=== PATIENT | female | born 1960 | race Caucasian/White ===

== ENCOUNTER → 2017-12-15 | Outpatient (CLI) | payer BC ==
--- NOTE | 2017-12-16 07:43 | MM ---
Reason for exam: screening (asymptomatic). Baseline mammogram. History: Patient is postmenopausal and had first child at age 32. Took hormonal contraceptives for 3 years. Physical Findings: Nurse did not find any significant physical abnormalities on exam. MG Screening Mammo w CAD Bilateral CC and MLO view(s) were taken. XCCL view(s) were taken of the right breast. The breast tissue is heterogeneously dense. This may lower the sensitivity of mammography. There is no discrete abnormality. Some scattered regional calcifications right upper outer quadrant. These results were verbally communicated with the patient and result sheet given to the patient on 12/15/17. ASSESSMENT: Negative, BI-RAD 1 RECOMMENDATION: Routine screening mammogram of both breasts in 1 year.
== END ==
LOC: RADMAMWWP 14:49
PROVIDERS: ATTEND Family Medicine
DX: Z12.31 Encounter for screening mammogram for malignant neoplasm of breast (principal)
CPT/HCPCS: 77067

== ENCOUNTER 2020-10-20 07:37 | Inpatient (IN) | payer BC, OTHER ==
[2020-10-20 07:58] LABS: Glucose,Whole Blood 132 mg/dL (75-99)
--- NOTE | 2020-10-20 08:01 | ED ---
Neuro HPI - General Chief Complaint: Neuro Symptoms/Deficit Stated Complaint: slurred speech Time Seen by Provider: 10/20/20 07:55 Source: patient Mode of arrival: wheelchair Limitations: no limitations - History of Present Illness Is the patient presenting with stroke symptoms?: Yes Last Known Well Date: 10/18/20 (Went to bed 10/18/20 and woke up 10/19/20 with symtpoms) Last Known Well Time: 21:00 Initial Comments: 60-year-old female, current everyday smoker with no diagnosed past medical history per patient presented to the ER today for chief complaint of changes in speech x 1 day. Patient states that she woke up on the morning of 10/18/2020 with changes in her speech she states it was difficulty saying the words, she denies changes in though process or expressing self. She states that she was talking like her tongue was fat. She states her right side of her face also felt strange. Denies noting obvious droop. Patient denies headache, vision loss/changes, denies falls/head injury, leg or arm weakness/sensation deficits, dizziness, neck pain, or feeling off balance. Patient states that this morning she woke up at around 5:30AM with worsening speech changes. Patient denies experiencing this in the past. Patient denies chest pain, dyspnea, leg swelling, urinary changes. No additional complaints. - Related Data Home Medications: Home Medications Medication Instructions Recorded Confirmed No Known Home Medications 10/20/20 10/20/20 Allergies/Adverse Reactions: Allergies Allergy/AdvReac Type Severity Reaction Status Date / Time No Known Allergies Allergy Verified 10/20/20 08:34 Review of Systems ROS Statement: Those systems with pertinent positive or pertinent negative responses have been documented in the HPI. ROS Other: All systems not noted in ROS Statement are negative. General Exam - General Exam Comments Initial Comments: General: The patient is awake and alert, in no distress Eye: +3 mm pupils are equal, round and reactive to light, extra-ocular movements are intact. No nystagmus. There is normal conjunctiva bilaterally. No signs of icterus. Ears, nose, mouth and throat: There are moist mucous membranes and no oral lesions. Neck: The neck is supple, there is no tenderness or JVD. Cardiovascular: There is a regular rate and rhythm. No murmur, rub or gallop is appreciated. Respiratory: Lungs are clear to auscultation, respirations are non-labored, breath sounds are equal. No wheezes, stridor, rales, or rhonchi. Gastrointestinal: Soft, non-distended, non-tender abdomen without masses or organomegaly noted. There is no rebound or guarding present. No CVA tenderness. Bowel sounds are unremarkable. Musculoskeletal: Normal ROM, no tenderness. Strength 5/5. Sensation intact. Radial and DP pulses equal bilaterally 2+. Neurological: A&O x 3. CN II-XII intact-aside from patient have slight right sided facial droop-very mild on exam but noted (forehead sparing), memory intact to immediately, intermediate and detention recall. Able to follow simple verbal. Able to name a common objects/things (glove, cactus). Speech appear dysarthric, mild-moderate. Low quality posterior pharynx/larynx (ga) voice sounds. Able to express general knowledge (days in a week). No hemineglect or inattention noted. Finger agnosia (-) and spatially oriented (identified L index finger touched R shoulder with L index finger).Light touch sensation present over the face with right sided more dull then left, remaining areas chest, abdomen, back, UE bilaterally, and LE bilaterally are said to be normal. Able to localize point during point localization b/l and extinction. No visible bulk atrophy, hypertrophy, fasciculations, or myoclonus of the UE or LE b/l. Full PROM in UE and LE b/l. Bilateral muscle strength 5/5 for the following muscles: deltoid, biceps, triceps, brachioradialis, wrist extensors/flexor, hip flexor, hip abductors/adductors, hamstrings, quadriceps, feet dorsiflexors/plantar flexors. Finger to nose, finger to the examiners finger, and heel to morris coordinated and accurate b/l. Coordinated and even demonstration of hand flip, finger to thumb, and toe tap b/l. (-) pronator drift. No nuchal rigidity. (-) Brudzinskis and Kernig signs. Skin: Skin is warm and dry and no rashes or lesions are noted. Psychiatric: Cooperative, appropriate mood & affect, normal judgment. NIH (3) Mild dysarthria (1) Mild right-sided facial droop and mild right facial sensation deficit (2) Limitations: no limitations Stroke MDM - Lab Data Result diagrams: 10/20/20 07:59 10/20/20 07:59 Lab Results 10/20/20 10/20/20 10/20/20 Range/Units 07:56 07:59 07:59 WBC 4.9 (3.8-10.6) k/uL RBC 4.54 (3.80-5.40) m/uL Hgb 14.3 (11.4-16.0) gm/dL Hct 42.9 (34.0-46.0) % MCV 94.4 (80.0-100.0) fL MCH 31.5 (25.0-35.0) pg MCHC 33.4 (31.0-37.0) g/dL RDW 12.9 (11.5-15.5) % Plt Count 340 (150-450) k/uL MPV 7.9 Neutrophils % 63 % Lymphocytes % 27 % Monocytes % 6 % Eosinophils % 2 % Basophils % 1 % Neutrophils # 3.1 (1.3-7.7) k/uL Lymphocytes # 1.3 (1.0-4.8) k/uL Monocytes # 0.3 (0-1.0) k/uL Eosinophils # 0.1 (0-0.7) k/uL Basophils # 0.0 (0-0.2) k/uL PT 10.3 (9.0-12.0) sec INR 1.0 (<1.2) APTT 25.2 (22.0-30.0) sec Sodium (137-145) mmol/L Potassium (3.5-5.1) mmol/L Chloride (98-107) mmol/L Carbon Dioxide (22-30) mmol/L Anion Gap mmol/L BUN (7-17) mg/dL Creatinine (0.52-1.04) mg/dL Est GFR (CKD-EPI)AfAm (>60 ml/min/1.73 sqM) Est GFR (CKD-EPI)NonAf (>60 ml/min/1.73 sqM) Glucose (74-99) mg/dL POC Glucose (mg/dL) 132 H (75-99) mg/dL POC Glu Environmental Advisor ID Carrington Pleitez Calcium (8.4-10.2) mg/dL Total Bilirubin (0.2-1.3) mg/dL AST (14-36) U/L ALT (4-34) U/L Alkaline Phosphatase (38-126) U/L Troponin I (0.000-0.034) ng/mL Total Protein (6.3-8.2) g/dL Albumin (3.5-5.0) g/dL 10/20/20 10/20/20 Range/Units 07:59 07:59 WBC (3.8-10.6) k/uL RBC (3.80-5.40) m/uL Hgb (11.4-16.0) gm/dL Hct (34.0-46.0) % MCV (80.0-100.0) fL MCH (25.0-35.0) pg MCHC (31.0-37.0) g/dL RDW (11.5-15.5) % Plt Count (150-450) k/uL MPV Neutrophils % % Lymphocytes % % Monocytes % % Eosinophils % % Basophils % % Neutrophils # (1.3-7.7) k/uL Lymphocytes # (1.0-4.8) k/uL Monocytes # (0-1.0) k/uL Eosinophils # (0-0.7) k/uL Basophils # (0-0.2) k/uL PT (9.0-12.0) sec INR (<1.2) APTT (22.0-30.0) sec Sodium 137 (137-145) mmol/L Potassium 4.0 (3.5-5.1) mmol/L Chloride 106 (98-107) mmol/L Carbon Dioxide 21 L (22-30) mmol/L Anion Gap 10 mmol/L BUN 15 (7-17) mg/dL Creatinine 0.52 (0.52-1.04) mg/dL Est GFR (CKD-EPI)AfAm >90 (>60 ml/min/1.73 sqM) Est GFR (CKD-EPI)NonAf >90 (>60 ml/min/1.73 sqM) Glucose 124 H (74-99) mg/dL POC Glucose (mg/dL) (75-99) mg/dL POC Glu Environmental Advisor ID Calcium 9.6 (8.4-10.2) mg/dL Total Bilirubin 0.9 (0.2-1.3) mg/dL AST 22 (14-36) U/L ALT 13 (4-34) U/L Alkaline Phosphatase 62 (38-126) U/L Troponin I <0.012 (0.000-0.034) ng/mL Total Protein 7.7 (6.3-8.2) g/dL Albumin 4.6 (3.5-5.0) g/dL - NIH Stroke Scale 1a. Level of Consciousness: (0) alert 1b. LOC Questions: (0) answers correctly 1c. LOC Commands: (0) performs tasks correctly 2. Best Gaze: (0) normal 3. Visual: (0) no visual loss 4. Facial Palsy: (1) minor paralysis (right side) 5a. Motor Arm Left: (0) no drift 5b. Motor Arm Right: (0) no drift 6a. Motor Leg Left: (0) no drift 6b. Motor Leg Right: (0) no drift 7. Limb Ataxia: (0) absent 8. Sensory: (1) mild/moderate sensory loss (right side of face only) 9. Best Language: (0) no aphasia 10. Dysarthria: (1) mild/moderate dysarthria 11. Extinction/Inattention: (0) no abnormality - Medical Decision Making 60-year-old female presenting for dysarthria times greater than 24 hours. There is appreciated right-sided facial droop which is very mild as well as stated mild sensation deficit of the right side the face in comparison with the left. Patient had some improvement throughout visit with the dysarthria. As patient onset of symptoms was greater than 24 hours patient has not TPA candidate. CT revealed chronic ischemic findings no acute infarction was appreciated nor hemorrhage. Patient was given aspirin [address] angiography reveals no aneurysm no no of carotid plaque. Patient's EKG no atrial fibrillation. Patient does not endorse any past medical history however upon arrival patient's blood pressure significant elevated blood pressure did gradually decrease without blood pressure medications, as patient became more relaxed throughout visit. Troponin negative chest x-ray within normal limits. Patient does not appear in distress no worsening of symptoms. At this time after discussing case by attending provider Dr. Lopez we feel patient is stable for admission with neurology on consultation. Past Medical History Past Medical History: No Reported History History of Any Multi-Drug Resistant Organisms: None Reported Past Surgical History: No Surgical Hx Reported Past Psychological History: No Psychological Hx Reported Smoking Status: Current every day smoker Past Alcohol Use History: Occasional Past Drug Use History: None Reported - Past Family History Mother Family Medical History: Unable to Obtain Additional Family Medical History / Comment(s): Mother is . Pt became emotional and unable to discuss her parents medical history. Father Family Medical History: Unable to Obtain Additional Family Medical History / Comment(s): Father is . Course Vital Signs 10/20/20 10/20/20 10/20/20 07:39 08:37 09:03 Temperature 98 F Pulse Rate 70 70 64 Respiratory 16 16 16 Rate Blood Pressure 207/111 208/101 199/96 O2 Sat by Pulse 100 99 97 Oximetry 10/20/20 10:57 Temperature 97.7 F Pulse Rate 64 Respiratory 18 Rate Blood Pressure 177/81 O2 Sat by Pulse 100 Oximetry - Reevaluation(s) Reevaluation #1: Re-evaluation, some improvement in dysarthria, CT discussed, CTA ordered. Discussed findings with Dr. Lopez 10/20/20 08:34 Disposition Clinical Impression: Dysarthria, CVA (cerebral vascular accident), Facial asymmetries, Paresthesias Disposition: ADMITTED IP TO THIS [facility] Condition: Serious Is patient prescribed a controlled substance at d/c from ED?: No Time of Disposition: 09:46 Decision to Admit Reason: Admit from EC Decision Date: 10/20/20 Decision Time: 09:46
[2020-10-20 08:16] LABS: Basophils % (A) 1 %; Eosinophils # (A) 0.1 k/uL (0-0.7); Eosinophils % (A) 2 %; HCT 42.9 % (34.0-46.0); HGB 14.3 gm/dL (11.4-16.0); Lymphocytes # (A) 1.3 k/uL (1.0-4.8); Lymphocytes % (A) 27 %; MCH 31.5 pg (25.0-35.0); MCHC 33.4 g/dL (31.0-37.0); MCV 94.4 fL (80.0-100.0); Mean Platelet Volume 7.9; Monocytes # (A) 0.3 k/uL (0-1.0); Monocytes % (A) 6 %; Neutrophils # (A) 3.1 k/uL (1.3-7.7); Neutrophils % (A) 63 %; Platelet Count 340 k/uL (150-450); RBC 4.54 m/uL (3.80-5.40); RDW 12.9 % (11.5-15.5); WBC 4.9 k/uL (3.8-10.6)
[2020-10-20 08:19] LABS: Partial Thromboplastin Time 25.2 sec (22.0-30.0); Prothrombin Time 10.3 sec (9.0-12.0)
--- NOTE | 2020-10-20 08:27 | CT ---
EXAMINATION TYPE: CT brain wo con for TPA DATE OF EXAM: 10/20/2020 COMPARISON: None HISTORY: Neuro deficit, acute, stroke suspected CT DLP: 1142.[address] of the brain was performed. The ventricles, basal cisterns and sulci overlying the cerebral convexities demonstrate mild to moder ate enlargement. There is no evidence for intracranial hemorrhage or sulcal effacement. There is decreased attenuation about the periventricular white matter and deep white matter of both c erebral hemispheres, compatible with chronic small vessel ischemia. Differential diagnosis does inclu de demyelination. No mass effects are seen.No midline shift. Osseous calvarium is intact. If symptoms persist consider MRI. IMPRESSION: 1. Age related atrophic and chronic small vessel ischemic change without acute intracranial process s een at this time.
[2020-10-20 08:31] LABS: ALT 13 U/L (4-34); AST 22 U/L (14-36); African American GFR (CKD) >90 (>60 ml/min/1.73 sqM); Albumin 4.6 g/dL (3.5-5.0); Alkaline Phosphatase 62 U/L (38-126); Anion Gap 10 mmol/L; Blood Urea Nitrogen 15 mg/dL (7-17); Calcium 9.6 mg/dL (8.4-10.2); Carbon Dioxide 21 mmol/L (22-30); Chloride 106 mmol/L (98-107); Glucose 124 mg/dL (74-99); Non-African American GFR(CKD) >90 (>60 ml/min/1.73 sqM); Sodium 137 mmol/L (137-145); Total Bilirubin 0.9 mg/dL (0.2-1.3); Total Protein 7.7 g/dL (6.3-8.2)
--- NOTE | 2020-10-20 09:08 | XR ---
EXAMINATION TYPE: XR chest 2V DATE OF EXAM: 10/20/2020 COMPARISON: None INDICATION: Altered mental status TECHNIQUE: Frontal and lateral views of the chest are obtained. FINDINGS: The heart size is normal. The pulmonary vasculature is normal. The lungs are clear. IMPRESSION: 1. No acute pulmonary process.
--- NOTE | 2020-10-20 09:36 | CT ---
EXAMINATION TYPE: CT angio head neck DATE OF EXAM: 10/20/2020 COMPARISON: None HISTORY: Speech Changes CT DLP: 394.6 mGycm CONTRAST: Performed with IV Contrast, patient injected with 65 ml mL of Isovue 370. Combination Contrast CTA cervical carotids and [place] CTA cervical carotids with 3-D recons truction Contrast CTA of the cervical carotids was performed 3-D reconstruction imaging obtained at a separate workstation. Right carotid system: Mild plaque is seen of the right common carotid artery. There is mild plaque a lso noted at the carotid bulb and proximal ICA. No significant diameter reduction. ECA is patent. Right vertebral artery appears unremarkable. Left carotid system: Mild plaque is seen of the left common carotid artery. There is mild plaque als o noted at the carotid bulb and proximal ICA. No significant diameter reduction. ECA is patent. Lef t vertebral artery appears unremarkable. IMPRESSION: 1. No significant diameter reduction to account for the patient's symptoms. CTA [place] with 3-D reconstruction Contrast CTA of the [place] was performed 3-D reconstruction imaging obtained at a separate workstation. Vertebrobasilar system as well as intracranial portions of the internal carotid arteries and their ma daina tributaries are patent. I do not see evidence for sizable aneurysm or vascular malformation. Pl ease note MRI provides greater sensitivity and specificity. Visualized brain appears grossly unremar kable. IMPRESSION: 1. No significant abnormality.
[2020-10-20] MEDS ORDERED: ASPIRIN 325 MG TAB PO STA (09:46)
--- NOTE | 2020-10-20 12:18 | P.HPIM ---
History of Present Illness H&P Date: 10/20/20 Chief Complaint: Dysphasia This is a 60-year-old female patient who presents to the ER with complaints of difficulty with speech. patient reports that symptoms started one day ago. Patient reports that at times would get better and then worse again. She also reports some numbness to her right side of face. Denies any changes to gait or increased confusion. patient reports that she woke up today around 5:30 in the morning with worsening speech. Patient then proceeded to ER for further evaluation. Patient denies any significant medical history does reports she isn't every day smoker half pack per day. Head CT was completed showing age- related atrophic and chronic small vessel ischemic changes without acute intracranial process seen at this time. Chest x-ray completed showing no acute pulmonary process. CTA was completed showing no significant abnormality. At this time will order 2-D echo. Neurology consult placed. PT OT consult placed. Speech eval to be completed per nursing staff. Nicotine patch ordered. Review of Systems please refer to HPI otherwise unremarkable Past Medical History Past Medical History: No Reported History Additional Past Medical History / Comment(s): R hip pain/sciatica History of Any Multi-Drug Resistant Organisms: None Reported Past Surgical History: No Surgical Hx Reported Additional Past Surgical History / Comment(s): Bilateral cataract removals with R lens implant. Additional Past Anesthesia/Blood Transfusion Reaction / Comment(s): Pt has never had general anesthesia. Past Psychological History: No Psychological Hx Reported Smoking Status: Current every day smoker Past Alcohol Use History: Occasional Past Drug Use History: None Reported - Past Family History Mother Family Medical History: Unable to Obtain Additional Family Medical History / Comment(s): Mother is . Pt became emotional and unable to discuss her parents medical history. Father Family Medical History: Unable to Obtain Additional Family Medical History / Comment(s): Father is . Medications and Allergies Home Medications Medication Instructions Recorded Confirmed Type No Known Home Medications 10/20/20 10/20/20 History Allergies Allergy/AdvReac Type Severity Reaction Status Date / Time No Known Allergies Allergy Verified 10/20/20 08:34 Physical Exam Vitals: Vital Signs Temp Pulse Resp BP Pulse Ox 10/20/20 11:56 97.9 F 67 18 205/101 99 10/20/20 10:57 97.7 F 64 18 177/81 100 10/20/20 09:03 64 16 199/96 97 10/20/20 08:37 70 16 208/101 99 10/20/20 07:39 98 F 70 16 207/111 100 Intake and Output 10/19/20 10/20/20 10/20/20 22:59 06:59 14:59 Other: Weight 60.328 kg Head normocephalic Neck supple Lungs clear to auscultation bilaterally no wheezing or crackles Heart regular rate and rhythm S1-S2, no rub or gallop Abdomen is soft nontender nondistended positive bowel sounds no hepatosplenomegaly Extremities no edema Neuro alert and orientated to 3. Speech is somewhat slurred. Equal strength throughout all extremities. Slight right facial droop noted. Memory does appear to be intact Results CBC & Chem 7: 10/20/20 07:59 10/20/20 07:59 Labs: Abnormal Lab Results - Last 24 Hours (Table) 10/20/20 10/20/20 Range/Units 07:56 07:59 Carbon Dioxide 21 L (22-30) mmol/L Glucose 124 H (74-99) mg/dL POC Glucose (mg/dL) 132 H (75-99) mg/dL Thrombosis Risk Factor Assmnt - Choose All That Apply Any of the Below Risk Factors Present?: Yes Each Factor Represents 1 point: Age 41-60 years Other Risk Factors: Yes Other congenital or acquired thrombophilia - If yes, enter type in comment: No Each Risk Factor Represents 5 Points: Stroke (< 1 month) Thrombosis Risk Factor Assessment Total Risk Factor Score: 6 Thrombosis Risk Factor Assessment Level: High Risk Assessment and Plan Assessment: 1. Slurred speech and right-sided facial droop secondary to CVA. Neurology services consulted. CT negative. CTA negative. 2-D echo has been ordered. 2. Nicotine dependence. Patient educated greater than 3 minutes on smoking cessation. Nicotine patch ordered Time with Patient: Greater than 30
[2020-10-20] MEDS ORDERED: hydrALAZINE HCL 20 MG/ML 1 ML VIAL IVP PRN (13:39)
--- NOTE | 2020-10-20 13:48 | P.HPADDEND ---
H&P Addendum H&P Addendum Date: 10/20/20 Hypertensive emergency, on presentation blood pressure was 207/111 blood pressure came down to 154/80 without any medications Will continue to monitor, will give hydralazine 10 mg IV every 6 hours when necessary for systolic blood pressure above 160 or diastolic blood pressure above 90
[2020-10-20] MEDS ORDERED: ATORVASTATIN 80 MG TAB PO STA (16:31)
[2020-10-20] MEDS ORDERED: LORazepam 2 MG/ML INJ IV STA (17:20)
--- NOTE | 2020-10-20 17:22 | P.CNNES ---
History of Present Illness Consult date: 10/20/20 Reason for Consult: right facial droop and dysarthria concerning for stroke History of Present Illness: This is a 60-year-old right-haned woman with no medical history but is a chronic tobacco use who presented to the emergency department on 10/20/2020 for difficulty getting the words out and slurring speech. According to patient and the started on 10/18/2020 which was a Friday around 5:00 in the afternoon and she was having difficulty getting her words out and was slurring her speech while talking on the phone with her son. The episode lasted for 10 minutes. Then it resolved she did not have any other neurological problem associate with this at. Next day which was a as she had the also difficulty getting her words out as slurring his speech and this was at work that happened between 10:00 in the morning to 3 PM. The resolved. Then that today around 5:30 morning she had difficulty getting her words out and she felt the her speech was way worse then the Friday and episode as well as she felt her face w as crooked she felt she had mild right facial droop. And the episode lasted the longer until she got to the emergency department. She said that that in the ED when the examiner she felt she had numbness over the right side of the face. Currently she feels her speech has improved. She said she mainly has a difficulty getting some words out that she notices but much better than the morning today. She denies of any weakness of any extremities, denies any current numbness, visual disturbance, difficulty swallowing. Denies of any headache. She denies of any stroke or TIA in the past. She denies off being told that she has hypertension, hypercholesterolemia or diabetes. She said that one pack lasting 2 days. She drinks alcohol and she said that the 1-2 cups acute be every other day. She is not on any antiplateletes or statins. She denies of having any atrial fibrillation in the past. Workup in the hospital consisted of: CT of the head is reported as age-related atrophic and chronic small vessel ischemic change without acute intracranial process seen at this time. CTA of the head and neck: normal and no signficant abnormality. EKG is reported as normal sinus rhythm. Normal EKG. Review of Systems Review of system: The 12 point system was reviewed and apparent positive and negative per HPI. Past Medical History Past Medical History: No Reported History Additional Past Medical History / Comment(s): R hip pain/sciatica History of Any Multi-Drug Resistant Organisms: None Reported Past Surgical History: No Surgical Hx Reported Additional Past Surgical History / Comment(s): Bilateral cataract removals with R lens implant. Additional Past Anesthesia/Blood Transfusion Reaction / Comment(s): Pt has never had general anesthesia. Past Psychological History: No Psychological Hx Reported Smoking Status: Current every day smoker Past Alcohol Use History: Occasional Past Drug Use History: None Reported - Past Family History Mother Family Medical History: Unable to Obtain Additional Family Medical History / Comment(s): Mother is . Pt became emotional and unable to discuss her parents medical history. Father Family Medical History: Unable to Obtain Additional Family Medical History / Comment(s): Father is . Medications and Allergies Home Medications Medication Instructions Recorded Confirmed Type No Known Home Medications 10/20/20 10/20/20 History Allergies Allergy/AdvReac Type Severity Reaction Status Date / Time No Known Allergies Allergy Verified 10/20/20 08:34 Physical Examination - Vital Signs Vital Signs: Vital Signs Temp Pulse Pulse Resp BP BP Pulse Ox 10/20/20 13:35 71 18 10/20/20 13:28 71 18 154/80 99 10/20/20 12:21 193/94 10/20/20 11:56 97.9 F 67 18 205/101 99 10/20/20 10:57 97.7 F 64 18 177/81 100 10/20/20 09:03 64 16 199/96 97 10/20/20 08:37 70 16 208/101 99 10/20/20 07:39 98 F 70 16 207/111 100 Intake and Output 10/20/20 10/20/20 10/20/20 06:59 14:59 22:59 Other: Weight 60.328 kg GENERAL: The patient is lying in bed and is not in acute distress. CHEST: The heart rate is regular rate rhythm. No murmurs to auscultation. No carotid bruit bilaterally. LUNG: Clear to auscultation bilaterally no wheezing noted throughout. Not labored breathing. ABDOMEN/GI: Bowel sounds present in all 4 quadrants. No tenderness to palpation throughout. NEUROLOGICAL: Higher mental function: The patient is awake, alert, oriented to self, place and time. Patient is following commands. No aphasia and no neglect. Cranial nerves: The pupils are round, equal and reactive to light and accommodation. Visual thomson are full to confrontation throughout. Extraocular movement is intact no nystagmus is noted. Facial sensation is normal to touch throughout. The facial strength is flattening over the right nasolabial. Hearing is normal bilaterally to hand rub. Tongue is midline and moved [id number] without any difficulty. Very subtle dysarthria is noted. Shoulder shrug is normal bilaterally. Motor: Gait is normal with normal arms swings. The strength is 5 over 5 throug hout. Normal tone and bulk. Cerebellum: Normal finger to nose bilaterally. Sensation: Sensation is normal to touch throughout. Reflexes (right/left): Biceps ---; triceps---; brachioradialis; pa tellar----; ankles-----. Plantars are downgoing bilaterally. Results Sodium is 137. Initial POC glucose was 132. Calcium is 9.6. Coagulation study: PT of 10.3, INR 1.0, PTT of 25.2 Mann virus PCR was not detected - Laboratory Findings CBC and BMP: 10/20/20 07:59 10/20/20 07:59 Abnormal Lab Findings: Abnormal Labs 10/20/20 10/20/20 07:56 07:59 Carbon Dioxide 21 L Glucose 124 H POC Glucose (mg/dL) 132 H Assessment and Plan Assessment: Slurring the speech as well as difficulty getting the words out (broca aphasia) with right nasolabial flatenening is due to acute ischemic stroke Chronic Tobacco use Plan: I ordered MRI the brain. Patient was given aspirin 325 once in the ED then was started on aspirin 81 mg by the primary team. I'll start the patient on dual antiplatelet aspirin 81 and Plavix 75 for now. I started the patient on Lipitor 80 mg daily. 2-D echo was ordered and is pending Lipid panels order is pending I ordered TSH I ordered cardiac continous telemetry. PT OT and BUCKLE SEWER are consulted. Continue neuro checks every 4 hours. I started the patient on thiamine 100mg daily. Patient was counseled on tobacco cessation and alcohol cessation. The plan is discussed with the patient and her nurse. Thank you for the consultation. Juan Jose Park MD Neuro-Hospitalist Time with Patient: Greater than 30
[2020-10-20] MEDS: THIAMINE 100 MG TAB PO SCH (17:44)
[2020-10-20] MEDS: CLOPIDOGREL 75 MG TAB PO SCH (17:44)
[2020-10-21] MEDS ORDERED: LORazepam 2 MG/ML INJ IV PRN (05:00)
[2020-10-21 07:29] LABS: Basophils % (A) 1 %; Eosinophils # (A) 0.1 k/uL (0-0.7); Eosinophils % (A) 2 %; HGB 13.4 gm/dL (11.4-16.0); Lymphocytes # (A) 1.3 k/uL (1.0-4.8); Lymphocytes % (A) 31 %; MCH 31.5 pg (25.0-35.0); MCHC 33.4 g/dL (31.0-37.0); MCV 94.2 fL (80.0-100.0); Mean Platelet Volume 7.5; Monocytes # (A) 0.3 k/uL (0-1.0); Monocytes % (A) 6 %; Neutrophils # (A) 2.5 k/uL (1.3-7.7); Neutrophils % (A) 58 %; Platelet Count 323 k/uL (150-450); RBC 4.24 m/uL (3.80-5.40); RDW 12.8 % (11.5-15.5); WBC 4.2 k/uL (3.8-10.6)
[2020-10-21 07:41] LABS: ALT 10 U/L (4-34); AST 18 U/L (14-36); African American GFR (CKD) >90 (>60 ml/min/1.73 sqM); Albumin 3.8 g/dL (3.5-5.0); Alkaline Phosphatase 48 U/L (38-126); Anion Gap 6 mmol/L; Blood Urea Nitrogen 16 mg/dL (7-17); Calcium 9.2 mg/dL (8.4-10.2); Carbon Dioxide 25 mmol/L (22-30); Chloride 105 mmol/L (98-107); Cholesterol 217 mg/dL (<200); Glucose 111 mg/dL (74-99); HDL Cholesterol 81 mg/dL (40-60); LDL Cholesterol,Calculated 125 mg/dL (0-99); Non-African American GFR(CKD) >90 (>60 ml/min/1.73 sqM); Potassium 4.7 mmol/L (3.5-5.1); Sodium 136 mmol/L (137-145); Total Bilirubin 0.6 mg/dL (0.2-1.3); Total Protein 6.6 g/dL (6.3-8.2); Triglycerides 57 mg/dL (<150)
[2020-10-21] MEDS: CLOPIDOGREL 75 MG TAB PO SCH (09:32)
[2020-10-21] MEDS: ASPIRIN 81 MG PO SCH (09:32)
[2020-10-21] MEDS: THIAMINE 100 MG TAB PO SCH (09:32)
[2020-10-21] MEDS: NICOTINE 14MG/24HR PATCH TRANSDERM SCH (09:32)
--- NOTE | 2020-10-21 13:48 | P.PN ---
Subjective Progress Note Date: 10/21/20 The patient was seen at bedside and she stated that she feels the she is doing better today compared to yesterday. She denies any further episodes of difficulty getting her words out. Denies of any new weakness, numbness, difficulty swallowing. Per the patient nurse and she scheduled to have the MRI today Objective - Vital Signs Vital signs: Vital Signs Temp 97.8 F 10/21/20 12:00 Pulse 67 10/21/20 12:00 Resp 18 10/21/20 12:00 BP 141/68 10/21/20 12:00 Pulse Ox 99 10/21/20 12:00 Intake & Output 10/20/20 10/21/20 10/21/20 18:59 06:59 18:59 Intake Total 840 Balance 840 Weight 60.328 kg 59.1 kg Intake: Oral 840 Other: # Voids 1 1 1 - Exam GENERAL: The patient is lying in bed and is not in acute distress. CHEST: The heart rate is regular rate rhythm. No murmurs to auscultation. No carotid bruit bilaterally. LUNG: Clear to auscultation bilaterally no wheezing noted throughout. Not labored breathing. ABDOMEN/GI: Bowel sounds present in all 4 quadrants. No tenderness to palpation throughout. NEUROLOGICAL: Higher mental function: The patient is awake, alert, oriented to self, place and time. Patient is following commands. No aphasia and no neglect. Cranial nerves: The pupils are round, equal and reactive to light and a ccommodation. Visual thomson are full to confrontation throughout. Extraocular movement is intact no nystagmus is noted. Facial sensation is normal to touch throughout. The facial strength is flattening over the right nasolabial. Hearing is normal bilaterally to hand rub. Tongue is midline and moved [id number] without any difficulty. Very subtle dysarthria is noted. Shoulder shrug is normal bilaterally. Motor: Gait is normal with normal arms swings. The strength is right arm is elbow extention/flexion is 5- other 5 over 5 throughout. Normal tone and bulk. Cerebellum: Normal finger to nose bilaterally. Sensation: Sensation is normal to touch throughout. Reflexes (right/left): 2+ throughout. Plantars are downgoing bilaterally. - Labs CBC & Chem 7: 10/21/20 06:47 10/21/20 06:47 Labs: Abnormal Lab Results - Last 24 Hours (Table) 10/21/20 Range/Units 06:47 Sodium 136 L (137-145) mmol/L Glucose 111 H (74-99) mg/dL Cholesterol 217 H (<200) mg/dL LDL Cholesterol, Calc 125 H (0-99) mg/dL HDL Cholesterol 81 H (40-60) mg/dL Assessment and Plan Assessment: Slurring the speech as well as difficulty getting the words out (broca aphasia) with right nasolabial flatenening is due to acute ischemic stroke Chronic Tobacco use Plan: MRI the brain: pending. Continue dual antiplatelet aspirin 81 and Plavix 75 for now then to discontinue Plavix after 21 days and continue ASA indefinetly. Continue Lipitor 80 mg daily. 2-D echo was ordered and is pending Lipid panels: Triglyceride 57, cholesterol 217, LDL 135 and HDL of 81. LDL goal strokes is less than 70. TSH: 2.10 which is normal. Continue cardiac continous telemetry. After the MRI will order event monitor. PT OT and EMERGENCY RESPONSE TECHNICIAN are consulted. Continue neuro checks every 4 hours. Continue thiamine 100mg daily. Patient was counseled on tobacco cessation and alcohol cessation. The plan is discussed with the patient and her nurse. Juan Jose Park MD Neuro-Hospitalist Time with Patient: Less than 30
--- NOTE | 2020-10-21 14:24 | MR ---
EXAMINATION TYPE: MR brain wo con DATE OF EXAM: 10/21/2020 COMPARISON: CT brain yesterday HISTORY: Slurred speech Multiplanar multiecho imaging of the brain was performed without contrast. On the diffusion images there is 1.4 cm rounded focus of increased signal in the left internal capsul e near the genu. This is consistent with an acute infarct. There is no mass effect nor midline shift. There is no evidence of intracranial hemorrhage. There is no evidence of cortical infarct. There is mild cerebral atrophy. There is mild enlargement of the ventricles. There is mild thinning of the corpus callosum. Sella turcica is normal. The brainstem is intact. Ther e is mild mucosal thickening in the right side ethmoid sinus. IMPRESSION: Acute lacunar infarct left internal capsule. No evidence of cortical infarct. Mild cerebral atrophy.
--- NOTE | 2020-10-21 15:30 | P.PN ---
Subjective Progress Note Date: 10/21/20 This is a 60-year-old female patient who presents to the ER with complaints of difficulty with speech. patient reports that symptoms started one day ago. Patient reports that at times would get better and then worse again. She also reports some numbness to her right side of face. Denies any changes to gait or increased confusion. patient reports that she woke up today around 5:30 in the morning with worsening speech. Patient then proceeded to ER for further evaluation. Patient denies any significant medical history does reports she isn't every day smoker half pack per day. Head CT was completed showing age- related atrophic and chronic small vessel ischemic changes without acute intracranial process seen at this time. Chest x-ray completed showing no acute pulmonary process. CTA was completed showing no significant abnormality. At this time will order 2-D echo. Neurology consult placed. PT OT consult placed. Speech eval to be completed per nursing staff. Nicotine patch ordered. 10/21/2020 patient was seen and examined on the medical floor she is alert and oriented 3 in no apparent distress she is still complaining of slurring with her speech otherwise she denies any complaints there is no fever or chills no headache or dizziness no chest pain no shortness of breath no cough no nausea or vomiting no abdominal pain no diarrhea no blood in the stools no burning with urination no frequency or urgency and no hematuria, blood pressure was significantly elevated on presentationm IV hydralazine was ordered on a when necessary basis, however blood pressure came down to normal range without any hydralazine given, will continue to monitor patient is scheduled for brain MRI today. Objective - Vital Signs Vital signs: Vital Signs Temp 98 F 10/21/20 08:00 Pulse 65 10/21/20 08:00 Resp 16 10/21/20 08:00 BP 117/60 10/21/20 08:00 Pulse Ox 99 10/21/20 08:00 Intake & Output 10/20/20 10/21/20 10/21/20 18:59 06:59 18:59 Intake Total 840 Balance 840 Weight 60.328 kg 59.1 kg Intake: Oral 840 Other: # Voids 1 1 1 - Exam Head normocephalic Neck supple Lungs clear to auscultation bilaterally no wheezing or crackles Heart regular rate and rhythm S1-S2, no rub or gallop Abdomen is soft nontender nondistended positive bowel sounds no hepatosplenomegaly Extremities no edema Neuro alert and orientated to 3. Speech is somewhat slurred. Equal strength throughout all extremities. Slight right facial droop noted. Memory does appear to be intact - Labs CBC & Chem 7: 10/21/20 06:47 10/21/20 06:47 Labs: Abnormal Lab Results - Last 24 Hours (Table) 10/21/20 Range/Units 06:47 Sodium 136 L (137-145) mmol/L Glucose 111 H (74-99) mg/dL Cholesterol 217 H (<200) mg/dL LDL Cholesterol, Calc 125 H (0-99) mg/dL HDL Cholesterol 81 H (40-60) mg/dL Assessment and Plan Assessment: 1. Slurred speech and right-sided facial droop secondary to CVA. Neurology services consulted. CT negative. CTA negative. 2-D echo has been ordered. 2. Nicotine dependence. Patient educated greater than 3 minutes on smoking cessation. Nicotine patch ordered 3.
[2020-10-21] MEDS ORDERED: ATORVASTATIN 80 MG TAB PO SCH (21:00)
[2020-10-22] MEDS: ASPIRIN 81 MG PO SCH (09:12)
[2020-10-22] MEDS: THIAMINE 100 MG TAB PO SCH (09:12)
[2020-10-22] MEDS: CLOPIDOGREL 75 MG TAB PO SCH (09:13)
[2020-10-22] MEDS: NICOTINE 14MG/24HR PATCH TRANSDERM SCH (09:13)
[2020-10-22 09:20] VITALS: BP 119/79; PULSE 72; RESP 14; TEMP 97.5
--- NOTE | 2020-10-22 09:45 | ECHOF ---
Referral Reason:cva MEASUREMENTS -------- HEIGHT: 167.6 cm WEIGHT: 60.3 kg BP: 205/101 RVIDd: 3.1 cm (< 3.3) IVSd: 1.2 cm (0.6 - 1.1) LVIDd: 3.8 cm (3.9 - 5.3) LVPWd: 1.4 cm (0.6 - 1.1) IVSs: 1.8 cm LVIDs: 2.7 cm LVPWs: 2.0 cm LAESV Index (A-L): 28.38 ml/m Ao Diam: 3.2 cm (2.0 - 3.7) AV Cusp: 1.9 cm (1.5 - 2.6) MV EXCURSION: 14.273 mm (> 18.000) MV EF SLOPE: 27 mm/s (70 - 150) EPSS: 0.6 cm MV E Quinten: 1.04 m/s MV DecT: 155 ms MV A Quinten: 1.13 m/s MV E/A Ratio: 0.92 RAP: 5.00 mmHg RVSP: 16.63 mmHg FINDINGS -------- Sinus rhythm. This was a technically adequate study. The left ventricular size is normal. There is mild concentric left ventricular hypertrophy. Overa ll left ventricular systolic function is normal with, an EF between 55 - 60 %. The diastolic fillin g pattern is normal for the age of the patient 17.95. The right ventricle is normal in size. Normal LA size by volume 22+/-6 ml/m2. The right atrial size is normal. Interatrial and interventricular septum intact. The aortic valve is trileaflet and appears structurally normal. There is no evidence of aortic regu rgitation. There is no evidence of aortic stenosis. No mitral regurgitation. Trace tricuspid regurgitation present. There is no evidence of pulmonary hypertension. The right ventricular systolic pressure, as measured by Doppler, is 16.63mmHg. There is no pulmonic regurgitation present. The aortic root size is normal. Normal inferior vena cava with normal inspiratory collapse consistent with estimated right atrial pre ssure of 5 mmHg. There is no pericardial effusion. CONCLUSIONS -------- 1. The left ventricular size is normal. 2. There is mild concentric left ventricular hypertrophy. 3. Overall left ventricular systolic function is normal with, an EF between 55 - 60 %. 4. The diastolic filling pattern is normal for the age of the patient 17.95 5. The right ventricle is normal in size. 6. Trace tricuspid regurgitation present. PLUGGING MACHINE OPERATOR: Shawanda Strauss RDCS
--- NOTE | 2020-10-22 10:50 | P.DS ---
Providers Date of admission: 10/20/20 10:19 Expected date of discharge: 10/22/20 Attending physician: Jasmyn Quinn Consults: 10/20/20 09:48 Consult Physician Urgent Consulting Provider: Juan Jose Park Consult Reason/Comments: CVA, right sided facial droop(minimal), dysarthria Do you want consulting provider notified?: Yes Primary care physician: Sirisha Briseno Hospital Course: Discharge diagnosis 1. Slurred speech and right-sided facial droop secondary to CVA. Neurology services consulted. CT negative. CTA negative. 2-D echo has been ordered. Brain MRI was completed showing acute lacunar infarct left internal capsule. No evidence of cortical infarct mild cerebral atrophy. Patient has been cleared for discharge from neurology standpoint. Per nursing staff neurology is no longer recommending event monitor. Patient will be DC'd on Plavix for 3 weeks per neurology recommendation along with aspirin Lipitor and thiamine. 2. Nicotine dependence. Patient educated greater than 3 minutes on smoking cessation. Nicotine patch ordered. Patient declined nicotine patch upon discharge 3. Hypertensive emergency. Blood pressure was elevated 207/111. Patient was g iven IV hydralazine. Blood pressure has remained stable at this time will not prescribe antihypertensive. Patient advised follow-up PCP for further management of blood pressure Hospital course This is a 60-year-old female patient who presents to the ER with complaints of difficulty with speech. patient reports that symptoms started one day ago. Patient reports that at times would get better and then worse again. She also reports some numbness to her right side of face. Denies any changes to gait or increased confusion. patient reports that she woke up today around 5:30 in the morning with worsening speech. Patient then proceeded to ER for further evaluation. Patient denies any significant medical history does reports she isn't every day smoker half pack per day. Head CT was completed showing age- related atrophic and chronic small vessel ischemic changes without acute intracranial process seen at this time. Chest x-ray completed showing no acute pulmonary process. CTA was completed showing no significant abnormality. At this time will order 2-D echo. Neurology consult placed. PT OT consult placed. Speech eval to be completed per nursing staff. Nicotine patch ordered. 10/21/2020 patient was seen and examined on the medical floor she is alert and oriented 3 in no apparent distress she is still complaining of slurring with her speech otherwise she denies any complaints there is no fever or chills no headache or dizziness no chest pain no shortness of breath no cough no nausea or vomiting no abdominal pain no diarrhea no blood in the stools no burning with urination no frequency or urgency and no hematuria, blood pressure was significantly elevated on presentationm IV hydralazine was ordered on a when necessary basis, however blood pressure came down to normal range without any hydralazine given, will continue to monitor patient is scheduled for brain MRI today. On 10/22/2020 patient alert and oriented 3. Patient expresses she is eager to go home. Speech has significantly improved. Patient was evaluated by neurology services and cleared for discharge brain MRI results above. Patient will be DC'd on Plavix for 21 days, aspirin, Lipitor and thiamine. Patient Kumar nicotine patch. Per neurology no longer recommending event monitor upon discharge. Patient to follow-up with PCP for further management. Patient ed ucated on the importance of smoking cessation declined nicotine patch at this time. Patient denies chest pain or shortness breath. Patient denies nausea vomiting or diarrhea. Patient denies any urinary burning frequency Patient Condition at Discharge: Stable Plan - Discharge Summary Discharge Rx Participant: No New Discharge Prescriptions: New Aspirin 81 mg PO DAILY 30 Days #30 chew Atorvastatin [Lipitor] 80 mg PO HS 30 Days #30 tab Clopidogrel [Plavix] 75 mg PO DAILY 21 Days #21 tab Thiamine [Vitamin B-1] 100 mg PO DAILY 30 Days #30 tab Discharge Medication List Aspirin 81 mg PO DAILY 30 Days #30 chew 10/22/20 [Rx] Atorvastatin [Lipitor] 80 mg PO HS 30 Days #30 tab 10/22/20 [Rx] Clopidogrel [Plavix] 75 mg PO DAILY 21 Days #21 tab 10/22/20 [Rx] Thiamine [Vitamin B-1] 100 mg PO DAILY 30 Days #30 tab 10/22/20 [Rx] Follow up Appointment(s)/Referral(s): Sirisha Briseno MD [Primary Care Provider] - 1-2 days Juan Jose Park MD [STAFF PHYSICIAN] - 1 Week Activity/Diet/Wound Care/Special Instructions: Activity as tolerated Diet heart healthy Discharge Disposition: HOME SELF-CARE
== END 2020-10-22 12:20 | disposition home or self-care (01) | DRG 65 ==
LOC: EC 07:37 → 3SCARD 10:19
PROVIDERS: ADMIT Internal Medicine; ATTEND Internal Medicine
DX: I63.81 Other cerebral infarction due to occlusion or stenosis of small artery (principal); I16.1 Hypertensive emergency; F17.200 Nicotine dependence, unspecified, uncomplicated; R29.810 Facial weakness; R47.01 Aphasia; R47.02 Dysphasia; M54.31 Sciatica, right side; Z96.1 Presence of intraocular lens; Z20.822 Contact with and (suspected) exposure to COVID-19; Z98.42 Cataract extraction status, left eye; Z98.41 Cataract extraction status, right eye; Z98.890 Other specified postprocedural states
CPT/HCPCS: 36415; 70450; 70496; 70498; 70551; 71046; 80053; 80061; 84443; 84484; 85025; 85610; 85730; 87635; 93005; 93306; 99285

== ENCOUNTER → 2020-12-25 | Outpatient (CLI) | payer OTHER ==
--- NOTE | 2020-12-26 07:36 | ECHOF ---
Referral Reason:Z86.73 Personal history of transient ischemic temitope MEASUREMENTS -------- HEIGHT: 167.6 cm WEIGHT: 63.5 kg BP: RVIDd: 2.4 cm (< 3.3) IVSd: 1.2 cm (0.6 - 1.1) LVIDd: 4.3 cm (3.9 - 5.3) LVPWd: 1.3 cm (0.6 - 1.1) IVSs: 2.1 cm LVIDs: 2.4 cm LVPWs: 1.9 cm LAESV Index (A-L): 26.50 ml/m Ao Diam: 2.6 cm (2.0 - 3.7) AV Cusp: 2.0 cm (1.5 - 2.6) LA Diam: 3.5 cm (2.7 - 3.8) MV EXCURSION: 15.293 mm (> 18.000) MV EF SLOPE: 111 mm/s (70 - 150) EPSS: 0.6 cm MV E Quinten: 1.04 m/s MV DecT: 200 ms MV A Quinten: 0.90 m/s MV E/A Ratio: 1.16 RAP: 5.00 mmHg RVSP: 19.01 mmHg FINDINGS -------- Sinus rhythm. This was a technically good study. The left ventricular size is normal. There is mild concentric left ventricular hypertrophy. Overa ll left ventricular systolic function is normal with, an EF between 55 - 60 %. Normal LAP Grade 1 Diastolic Dysfunction. The right ventricle is normal in size. Normal LA size by volume 22+/-6 ml/m2. The right atrial size is normal. Contrast study was performed with 2 iv injections of 8 ccs of agitated normal saline, at rest, and wi th cough. Interatrial and interventricular septum intact. The aortic valve is trileaflet, and appears structurally normal. No aortic stenosis or regurgitation. The mitral valve leaflets are mildly thickened. There is trace mitral regurgitation. The tricuspid valve appears structurally normal. Trace tricuspid regurgitation present. Right austen tricular systolic pressure is normal at < 35 mmHg. There is no pulmonic regurgitation present. The aortic root size is normal. Normal inferior vena cava with normal inspiratory collapse consistent with estimated right atrial pre ssure of 5 mmHg. There is no pericardial effusion. CONCLUSIONS -------- 1. There is mild concentric left ventricular hypertrophy. 2. Overall left ventricular systolic function is normal with, an EF between 55 - 60 %. 3. Normal LAP Grade 1 Diastolic Dysfunction. 4. Normal LA size by volume 22+/-6 ml/m2. 5. Contrast study was performed with 2 iv injections of 8 ccs of agitated normal saline, at rest, and with cough. No shunt seen. 6. Interatrial and interventricular septum intact. 7. The aortic valve is trileaflet, and appears structurally normal. No aortic stenosis or regurgitati on. 8. The mitral valve leaflets are mildly thickened. 9. There is trace mitral regurgitation. 10. Trace tricuspid regurgitation present. 11. There is no pericardial effusion. COMPUTER TECH: Mayela Nuñez RDCS
== END | disposition home or self-care (01) ==
LOC: RADECHMAIN 11:54
PROVIDERS: ATTEND Psychiatry & Neurology Neurology
DX: I08.1 Rheumatic disorders of both mitral and tricuspid valves (principal)
CPT/HCPCS: 93306

== ENCOUNTER → 2021-10-26 | Outpatient (CLI) | payer OTHER ==
--- NOTE | 2021-10-26 10:55 | XR ---
EXAMINATION TYPE: XR femur LT, XR Hip Complete LT DATE OF EXAM: 10/26/2021 CLINICAL HISTORY: pain TECHNIQUE: AP and frogleg views of the left hip are obtained. COMPARISON: None. FINDINGS: There is no acute fracture/dislocation evident. The joint space appears within normal li mits. The overlying soft tissue appears unremarkable. IMPRESSION: 1. There is no acute fracture or dislocation.ICD 10 NO FRACTURE, INITIAL EVALUATION EXAMINATION TYPE: XR femur LT, XR Hip Complete LT DATE OF EXAM: 10/26/2021 CLINICAL HISTORY: pain TECHNIQUE: Two views of the left femur are obtained. COMPARISON: None. FINDINGS: There is no acute fracture or dislocation seen of the femur. The hip and knee joints danilo ear within normal limits. The overlying soft tissue appears unremarkable. IMPRESSION: There is no acute fracture or dislocation seen of the femur. ICD 10 NO FRACTURE, INITIAL EVALUATION
== END | disposition home or self-care (01) ==
LOC: RADXRMAIN 09:59
PROVIDERS: ATTEND Emergency Medicine
DX: S76.212A Strain of adductor muscle, fascia and tendon of left thigh, initial encounter (principal); X58.XXXA Exposure to other specified factors, initial encounter
CPT/HCPCS: 73502

== ENCOUNTER → 2023-12-18 | Outpatient (CLI) | payer BC ==
--- NOTE | 2023-12-18 15:45 | US ---
EXAMINATION TYPE: US axilla LT DATE OF EXAM: 12/18/2023 COMPARISON: NONE CLINICAL INDICATION: Female, 63 years old with history of R22.9 LOCALIZED SWELLING, MASS AND LUMP, UN SPECIFI; Large lump x 6 months in the left arm pit. No recent infection. No pain. TECHNIQUE: Scanned left axilla. FINDINGS: Auto Dealer notes: Numerous hypoechoic, vascular areas seen within the left axilla. *Largest measures 6.2 x 6.7 x 3.8 cm. 2nd largest is superior to initial area and measures 3.9 x 2.4 x 2.0 cm. *Multiple additional smaller hypoechoic areas seen adjacent. IMPRESSION: Extensive left axillary lymphadenopathy. Largest node measuring 6.7 cm. Recommend further evaluation including workup for the primary site.
--- NOTE | 2023-12-18 15:48 | US ---
EXAMINATION TYPE: US groin LT DATE OF EXAM: 12/18/2023 COMPARISON: NONE CLINICAL INDICATION: Female, 63 years old with history of R22.9 LOCALIZED SWELLING, MASS AND LUMP, UN SPECIFI; Lump left groin. TECHNIQUE: Scanned left groin at palpable area of concern. FINDINGS: Stone Layout Marker notes: Hypoechoic, vascular area seen within the left groin measurin.5 x 1 .5 x 1.4 cm. IMPRESSION: Single, abnormally enlarged 2.5 cm left inguinal lymph node. Correlate for metastatic adenopathy. Fur ther appropriate workup recommended.
== END | disposition home or self-care (01) ==
LOC: RADUSWWP 14:42
PROVIDERS: ATTEND Family Medicine
DX: R59.0 Localized enlarged lymph nodes (principal)

== ENCOUNTER → 2023-12-23 | Outpatient (CLI) | payer BC ==
--- NOTE | 2023-12-23 16:34 | CT ---
EXAMINATION TYPE: CT ChestAbdPelvis w con DATE OF EXAM: 12/23/2023 INDICATION: enlarged lymph nodes COMPARISON: None CT DLP: 1126 mGycm CONTRAST: Performed with Oral Contrast and with IV Contrast, patient injected with 100ml mL of Isovue 300. TECHNIQUE: Axial images at 5 mm thick sections. Reconstructed images in the coronal plane. Delayed images through the kidneys. FINDINGS: CT CHEST: Portion of the thyroid visualized is normal. No suspicious lung nodules or focal infiltrates are present. Azygos fissure is present. 1 there is marked enlargement of left axillary lymphadenopathy. The largest superficial lymph node me asures 4.4 cm transverse. Additional enlarged lymphadenopathy is present measuring nearly 2 cm in siz e. A few small shoddy lymph nodes are present as well. No gross left breast mass is identified. No enlarged mediastinal or hilar adenopathy is evident. The ascending aorta diameter at the level of the main pulmonary artery is 3.3 cm. The main pulmonary artery diameter at the bifurcation is 2.3 cm. Coronary artery calcification is present. Very minimal pericardial effusion may be present. This may be within the physiologic range. CT ABDOMEN: Liver: Normal Spleen: Normal Pancreas: Normal. Pancreatic duct is identified but does not appear enlarged. Adrenal glands: The adrenal glands are normal. 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 No disc rete mass is evident within the kidneys.. No hydronephrosis is present. No cysts are present. Soledad yed images were obtained through the kidneys, which remain unremarkable. Aorta: Vascular calcification is within the aorta. Inferior vena cava: Normal. CT PELVIS: There is some small bowel thickening within the left midabdomen. Example image series 3 image 70. No obstruction is evident. Oral contrast extends to the transverse colon. Few diverticuli may be present within the sigmoid colon. There are loops of bowel which are incompletely distended or lack oral con trast limiting their evaluation. Appendix: Normal as visualized. Urinary bladder: Normal. Genitourinary structures: Uterus appears normal. Adnexa are within normal limits. Osseous structures: No suspicious lytic or sclerotic lesions. Lymphadenopathy: Markedly Enlarged Axillary lymphadenopathy is on the left. There is a prominent left inguinal lymph node measuring 1.4 cm. Additional prominent lymphadenopathy is within the left inguin al region. Additional enlarged lymph nodes are not identified. IMPRESSION: 1. Markedly enlarged left axillary lymphadenopathy. Prominent lymph nodes are within the left inguina l region. 2. Additional lymphadenopathy is not identified.
== END | disposition home or self-care (01) ==
LOC: RADCTMAIN 13:51
PROVIDERS: ATTEND Family Medicine
DX: R59.0 Localized enlarged lymph nodes (principal)
CPT/HCPCS: 71260; 74177; Q9967

== ENCOUNTER → 2024-01-28 | Outpatient (CLI) | payer BC ==
--- NOTE | 2024-01-28 23:26 | MM ---
Reason for Exam: Screening (asymptomatic). Last mammogram was performed 6 year(s) and 1 month(s) ago. Patient History: Menarche at age 10. First Full-Term at age 32. Late child-bearing (after 30). Postmenopausal. Patient used Hormonal Contraceptives for 3 years. Sister had breast cancer, age 52. Risk Values: Korin 5 year model risk: 3.5%. NCI Lifetime model risk: 14.3%. Prior Study Comparison: 12/15/2017 Bilateral Screening Mammogram, [facility]. Tissue Density: The breasts are extremely dense, which lowers the sensitivity of mammography. Findings: Analyzed By CAD. The pattern is symmetrical. Benign calcification within the right breast. Small spherical calcification within the left breast. No suspicious groups of microcalcifications, spiculated or lobular masses, architectural distortion or other secondary signs of malignancy are mammographically apparent. An axillary mammogram was obtained large hyperdense mass. Patient is scheduled for biopsy of this next week. Clinical management of this is recommended. The assessment and recommendations pertain only to the mammogram of the breasts and exclude the left axilla. Overall Assessment: Benign, BI-RAD 2 Management: Screening Mammogram of both breasts in 1 year. A negative mammogram report should not preclude additional follow up of suspicious palpable abnormalities. Patient should continue monthly self breast exam. A clinical breast exam by your physician is recommended on an annual basis and results should be correlated with mammographic findings. Note on Korin scores and lifetime risk: 1. A Korin score greater than 3% is considered moderate risk. If this is the case, consider specialist referral to assess eligibility for a risk reducing agent. 2. If overall lifetime risk for the development of breast cancer is 20% or higher, the patient may qualify for future screening with alternating mammogram and breast MRI. Electronically signed and approved by: Darinel Washington D.O. Radiologis
== END | disposition home or self-care (01) ==
LOC: RADMAMWWP 14:35
PROVIDERS: ATTEND Internal Medicine Hematology & Oncology
DX: Z12.31 Encounter for screening mammogram for malignant neoplasm of breast (principal); Z80.3 Family history of malignant neoplasm of breast; Z78.0 Asymptomatic menopausal state
CPT/HCPCS: 77067

== ENCOUNTER 2024-02-18 09:41 | Day surgery (SDC) | payer BC ==
[2024-02-16 09:32] VITALS: BMI 20.9
[~2024-02-18 09:41] MED LIST: LIDOCAINE 1% (10MG/ML) FOR IV START INTRADERMA PRN; MIDAZOLAM 2 MG/2 ML VIAL IV PRN; Pre Op ABX Message 1 EACH MISC MISCELLANE ONE; fentaNYL (PF) 50 MCG/ML 2 ML AMP IVP PRN
[2024-02-18] MEDS: LACTATED RINGERS 1,000 ML IV SCH (10:13)
[2024-02-18] MEDS: ONDANSETRON 4 MG/2 ML VIAL IVP ONE (10:13)
[2024-02-18] MEDS: DEXAMETHASONE SOD PHOSPHATE 4 MG/ML 1 ML VIAL IV ONE (10:13)
[2024-02-18] MEDS: IV FLUID CONTINUATION 1,000 ML IV ONE (10:16)
[2024-02-18] MEDS: HEPARIN SODIUM,PORCINE 5,000 UNIT/ML 1 ML VIAL SQ STA (10:50)
[2024-02-18] MEDS ORDERED: fentaNYL (PF) 50 MCG/ML 2 ML AMP ONE (11:05)
[2024-02-18] MEDS ORDERED: PROPOFOL 10 MG/ML 20 ML VIAL IV ONE (11:05)
[2024-02-18] MEDS ORDERED: MIDAZOLAM 2 MG/2 ML VIAL ONE (11:05)
[2024-02-18] MEDS ORDERED: ceFAZolin 1 GM/50 ML BAG (PMX) ONE (11:05)
[2024-02-18] MEDS ORDERED: LIDOCAINE 1% INJ 10MG/ML (20 ML MDV) ONE (11:05)
[2024-02-18] MEDS: SODIUM CHLORIDE 0.9% 50 ML with ceFAZolin 2,000 MG IV ONE (11:10)
[2024-02-18] MEDS: LIDOCAINE 1%-EPI 1:100,000 20 ML VIAL SQ ONE (11:26)
--- NOTE | 2024-02-18 11:52 | P.OP ---
Date of Procedure: 02/18/24 Preoperative Diagnosis: left axillary lymphadenopathy Postoperative Diagnosis: left axillary lymphadenopathy Procedure(s) Performed: excision of left axillary lymph node Anesthesia: MARCOS Surgeon: Erwin Eden Estimated Blood Loss (ml): 5 Pathology: other (lymph node) Condition: stable Disposition: PACU Description of Procedure: the patient's placed on the operating table in the supine position. She received general endotracheal tube anesthesia. Her left axilla was prepped and draped usual fashion. The patient had a 10 cm palpable lymph node. This incising zone. Using left cautery subcutaneous tissue divided. Lymph node was then dissected using Harmonic scissors. The specimen sent to pathology. A VERONICA drain is placed in the lumbar brought through separate stab incision. The deep layers closed with 2-0 Vicryl. Skin was closed interrupted 3-0 Monocryl suture. Dermabond dressings was applied. Patient top procedure well. She was sent to recovery room in stable condition.
[2024-02-18 11:58] VITALS: TEMP 97.2
[2024-02-18] MEDS: HYDROmorphone 0.5 MG/0.5 ML SYRINGE IVP PRN (12:00)
[2024-02-18 12:33] VITALS: RESP 18
[2024-02-18 12:53] VITALS: BP 156/77; PULSE 73
== END 2024-02-18 13:18 | disposition home or self-care (01) ==
LOC: OR 09:41
PROVIDERS: ATTEND Surgery
DX: C85.14 Unspecified B-cell lymphoma, lymph nodes of axilla and upper limb (principal); F17.210 Nicotine dependence, cigarettes, uncomplicated; Z86.73 Personal history of transient ischemic attack (TIA), and cerebral infarction without residual deficits; Z79.82 Long term (current) use of aspirin
CPT/HCPCS: 38500; 88307; J2250; J1644; J1100; J2405; J0690 ×2; J2001; J3010; J2704; J1170

== ENCOUNTER → 2024-03-25 | Outpatient (CLI) | payer BC ==
--- NOTE | 2024-03-25 18:40 | PE ---
EXAMINATION TYPE: PET CT fusion skull to thigh DATE OF EXAM: 03/25/2024 CLINICAL INDICATION:Female, 64 years old with history of R59.0 LYMPHADENOPATHY; reported previous lym ph node surgery in the left axilla. TECHNIQUE: Following the intravenous administration of 11.58 mCi of F-18 FDG, whole body images are performed from the skull base to the midthigh. Images are reviewed on the computer in the coronal, axial, and sagittal planes. Reconstructed rotating images are created on independent workstation and reviewed on the computer. A non-contrast CT is performed in conjunction with the PET scan. Glucose level 83 mg/dL CT DLP: 231.10 mGycm, Automated exposure control for dose reduction was used. COMPARISON: CT 12/23/2023, PET/CT None, MRI: 10/21/2020 FINDINGS: Mediastinal SUV mean is 2.4. Hepatic parenchyma SUV mean is 2.6. SKULL BASE AND NECK: Left supraclavicular lymph node with a maximum SUV of 3.9. CHEST, MEDIASTINUM, AND HILAR REGION: Decreased size of left axillary adenopathy status post surgical change with largest lymph node measur ing up to 1.6 cm. This demonstrates a maximum SUV of 8.1. Right prevascular space enlarged lymph node measuring 1.6 cm with a maximum SUV of 5.0. Enlarged prevascular space soft tissue lesion/possible lymph node measuring 3.3 x 1.6 cm with a maxim um SUV of 6.1. Subcentimeter left hilar lymph node with a maximum SUV of 4.8 ABDOMEN AND PELVIS: There are 3 distinct left inguinal lymph nodes which are FDG active. The largest measures up to 1.3 c m short axis with a maximum SUV of 21.2. MUSCULOSKELETAL STRUCTURES: Scattered regions of FDG uptake throughout the osseous structures without CT abnormality. These inclu de multiple ribs, vertebral bodies, bilateral humerus and femurs, sternum, and pelvic bones. Examples include The bilateral proximal femoral diaphysis with the right demonstrate a max SUV of 11.2 and the left a maximum SUV of 7.9. The right superior pubic ramus with a maximum SUV of 5.0. Right midline sacrum with a maximum SUV of 32.4. Left proximal humeral diaphysis with a maximum SUV of 7.3. Right anterior sixth rib with a maximum SUV of 17.1. Additional region of FDG uptake identified within the right obturator muscle with a maximum SUV of [address]: Bilateral aphakia. Mild to moderate atherosclerotic calcification of the aorta and its bran ches. Scattered colonic diverticulosis. Trace pericardial effusion. Mild coronary arterial calcificat ions. Incidental azygous fissure. Osteoarthritic changes of the right hip. IMPRESSION: Decreased size of FDG avid left axillary adenopathy status post surgical intervention. Additional FDG avid lymph nodes identified within the left supraclavicular region, mediastinum, left pulmonary hilu m, and left inguinal region. Additionally there are scattered regions of FDG uptake throughout the os seous structures without CT correlate. Findings are concerning for diffuse malignancy such as lymphom a. Correlate with prior surgical pathology.
== END | disposition home or self-care (01) ==
LOC: RADPETMAIN 15:22
PROVIDERS: ATTEND Internal Medicine Hematology & Oncology
DX: R59.0 Localized enlarged lymph nodes (principal); I67.89 Other cerebrovascular disease; E78.5 Hyperlipidemia, unspecified
CPT/HCPCS: 78815; A9552